=== PATIENT | male | born 1955 | race Caucasian/White ===

== ENCOUNTER 2017-03-18 12:40 | Outpatient (CLI) | payer OTHER ==
[2017-03-18] MEDS ORDERED: HEPARIN SODIUM 500 UNIT/5 ML DISP.SYRIN IV ONE (13:00)
[2017-03-18] MEDS ORDERED: SALINE FLUSH 10 ML DISP.SYRIN IVF ONE (13:00)
[2017-03-18] MEDS ORDERED: SALINE FLUSH 10 ML DISP.SYRIN IV ONE (13:06)
[2017-03-18] MEDS ORDERED: HEPARIN SODIUM,PORCINE 30 UNITS INJ IV ONE (13:06)
== END 2017-03-18 12:42 ==
LOC: INF 12:40
PROVIDERS: ATTEND Family Medicine
DX: B19.20 Unspecified viral hepatitis C without hepatic coma (principal)
CPT/HCPCS: 96523; J1642

== ENCOUNTER 2017-04-18 11:49 | Outpatient (CLI) | payer OTHER ==
[2017-04-18] MEDS ORDERED: SALINE FLUSH 10 ML DISP.SYRIN IVF ONE (12:00)
[2017-04-18] MEDS ORDERED: HEPARIN SODIUM 500 UNIT/5 ML DISP.SYRIN IV ONE (12:00)
== END 2017-04-18 11:50 ==
LOC: INF 11:49
PROVIDERS: ATTEND Family Medicine
DX: B19.20 Unspecified viral hepatitis C without hepatic coma (principal)
CPT/HCPCS: 96523; J1642